=== PATIENT | female | born 2000 | race Caucasian/White ===

== ENCOUNTER 2020-07-14 10:22 | Inpatient (IN) ==
[2020-07-14] MEDS ORDERED: Metoclopramide 10 MG/2 ML VIAL IVP PRN (10:39)
[2020-07-14] MEDS ORDERED: Naloxone 0.4 MG/ML INJ IVP PRN (10:39)
[2020-07-14] MEDS ORDERED: Famotidine 20 MG/2 ML VIAL IVP PRN (10:39)
[2020-07-14 11:29] LABS: Basophils % 0.3 %; Eosinophils % 0.4 %; Hematocrit 37.3 % (35.3-44.9); Hemoglobin 12.8 g/dL (11.5-15.4); Immature Granulocytes % 0.9 % (0-4); Lymphocytes # 1.5 K/mcL (0.6-4.6); Lymphocytes % 13.6 %; Mean Corpuscular HGB Conc 34.3 g/dL (31.6-35.5); Mean Corpuscular Hemoglobin 31.6 pg (28.0-33.3); Mean Corpuscular Volume 92.1 fL (83.0-100.0); Mean Platelet Volume 10.9 fL (9.4-12.4); Monocytes # 0.6 K/mcL (0.0-1.3); Monocytes % 5.2 %; Platelet Count 188 K/mcL (140-400); Red Blood Count 4.05 M/mcL (3.82-4.97); Red Cell Distribution Width 12.8 % (11.5-14.5); Segmented Neutrophils % 79.6 %; White Blood Count 11.3 K/mcL (4.3-11.1)
[2020-07-14 11:33] LABS: Amphetamine Screen,Urine Negative ng/mL (Cutoff=1000); Barbiturate Screen,Urine Negative ng/mL (Cutoff=200); Benzodiazepines Screen,Urine Negative ng/mL (Cutoff=200); Cannabinoid Screen,Urine Negative ng/mL (Cutoff = 50); Cocaine Screen,Urine Negative ng/mL (Cutoff= 300); Opiate Screen,Urine Negative ng/mL (Cutoff=300); Phencyclidine Screen,Urine Negative ng/mL (Cutoff=25); Protein/Creatinine Ratio,Urine 0.3 mg/mg (0.00-0.20)
[2020-07-14 11:43] LABS: Alanine Aminotransferase 21 Units/L (7-52); Aspartate Amino Transferase 25 Units/L (13-39); BUN/Creatinine Ratio 14 (6-26); Blood Urea Nitrogen 7 mg/dL (6-20); Lactate Dehydrogenase 182 Units/L (140-271); Uric Acid 5.4 mg/dL (2.3-7.6); eGFR For African Americans > 60 (> 60); eGFR For Non-African Americans > 60 (> 60)
[2020-07-14] MEDS ORDERED: miSOPROStoL 25 MCG TABLET VG PRN (12:09)
[2020-07-14] MEDS ORDERED: Ropivacaine/PF 0.2% 20 ML VIAL EP ONE (13:50)
[2020-07-14] MEDS ORDERED: EPHEDrine 50 MG/ML VIAL IVP PRN (13:50)
[2020-07-14] MEDS ORDERED: *HR* FentaNYL (PF) 100 MCG/2 ML VIAL EP ONE (13:50)
[2020-07-14] MEDS ORDERED: Ringers Solution, Lactated 1,000 ML ONE (14:42)
[2020-07-14] MEDS ORDERED: Ropivacaine/PF 0.2% 20 ML VIAL ONE (15:12)
[2020-07-14] MEDS ORDERED: *HR* FentaNYL (PF) 100 MCG/2 ML VIAL ONE ×2 (15:12→23:08)
[2020-07-15] MEDS ORDERED: Oxytocin 20 units/ LR 1000 mL 20 UNIT/1,000 ML BAG IVC SCH (01:45)
[2020-07-15] MEDS: Ringers Solution, Lactated 1,000 ML IVC SCH (02:15)
[2020-07-15] MEDS ORDERED: Acetaminophen 325 MG TABLET PO ONE ×2 (02:17→19:19)
[2020-07-15] MEDS: Epidural Premix (fent/bupiv) 110 ML EP SCH (10:32)
[2020-07-15] MEDS ORDERED: CeFAZolin 2,000 MG/50 ML BAG IVPB SCH (20:00)
[2020-07-15] MEDS ORDERED: Lidocaine/EPI 1:200k 2% PF 20 ML VIAL ONE (22:02)
[2020-07-15] MEDS ORDERED: Acetaminophen IV 1,000 MG/100 ML BAG IVPB ONE (22:02)
[2020-07-15] MEDS ORDERED: Ondansetron 4 MG/2 ML VIAL ONE (22:23)
[2020-07-15] MEDS ORDERED: *HR* Morphine Sulfate/PF 10 MG/10 ML AMPUL ONE (22:31)
[2020-07-15] MEDS ORDERED: Ondansetron 4 MG/2 ML VIAL IVP PRN (22:43)
[2020-07-15] MEDS ORDERED: *HR* OxyCODONE Immed Rel 5 MG TABLET PO PRN (22:43)
[2020-07-15] MEDS ORDERED: *HR* HYDROmorphone PF 0.5 MG/0.5 ML SYRINGE IVP PRN (22:43)
[2020-07-15 22:50] LABS: Cord Arterial Blood HCO3 21 mEq/L; Cord Arterial Blood Oxygen Sat 28 %
[2020-07-15 22:56] LABS: Cord Venous Blood HCO3 23 mEq/L; Cord Venous Blood PCO2 41 mmHg (27-42); Cord Venous Blood PO2 22 mmHg (15-45)
[2020-07-16] MEDS ORDERED: Acetaminophen 325 MG TABLET PO PRN (01:54)
[2020-07-16] MEDS ORDERED: Metoclopramide 10 MG/2 ML VIAL IVP PRN (01:54)
[2020-07-16] MEDS ORDERED: Ondansetron 4 MG/2 ML VIAL IVP PRN (01:54)
[2020-07-16] MEDS ORDERED: Azithromycin 500 MG in 0.9 % Sodium Chloride 250 ML IVPB STA (01:54)
[2020-07-16] MEDS ORDERED: Sennosides 8.6 MG TABLET PO PRN (01:54)
[2020-07-16] MEDS ORDERED: Naloxone 0.4 MG/ML INJ IVP PRN (01:54)
[2020-07-16] MEDS: Oxytocin 20 units/ LR 1000 mL 20 UNIT/1,000 ML BAG IVC SCH ×4 (02:49→14:15)
[2020-07-16 05:11] LABS: Basophils % 0.2 %; Eosinophils % 0.2 %; Hematocrit 35.1 % (35.3-44.9); Hemoglobin 12.2 g/dL (11.5-15.4); Immature Granulocytes % 0.5 % (0-4); Lymphocytes # 1.8 K/mcL (0.6-4.6); Lymphocytes % 9.6 %; Mean Corpuscular HGB Conc 34.8 g/dL (31.6-35.5); Mean Corpuscular Hemoglobin 31.6 pg (28.0-33.3); Mean Corpuscular Volume 90.9 fL (83.0-100.0); Mean Platelet Volume 11.2 fL (9.4-12.4); Monocytes # 0.9 K/mcL (0.0-1.3); Neutrophils # 15.9 K/mcL (1.6-8.9); Platelet Count 165 K/mcL (140-400); Red Blood Count 3.86 M/mcL (3.82-4.97); Red Cell Distribution Width 12.5 % (11.5-14.5); Segmented Neutrophils % 84.5 %
[2020-07-16 05:12] LABS: White Blood Count 18.8 K/mcL (4.3-11.1)
[2020-07-16] MEDS: Ibuprofen 600 MG TABLET PO PRN ×3 (05:56→23:32)
[2020-07-16] MEDS: Epidural Premix (fent/bupiv) 110 ML EP SCH (07:36)
[2020-07-16] MEDS: Ringers Solution, Lactated 1,000 ML IVC SCH ×2 (07:36→07:37)
[2020-07-16] MEDS: *HR* OxyCODONE/APAP 5/325 TABLET PO PRN ×2 (08:10→14:14)
[2020-07-16] MEDS: Prenatal Vit/FA 1 EACH TABLET PO SCH (08:11)
[2020-07-16] MEDS: Simethicone 80 MG TAB.CHEW PO PRN (17:38)
[2020-07-16] MEDS: *HR* OxyCODONE Immed Rel 5 MG TABLET PO PRN (20:12)
[2020-07-17] MEDS: Ibuprofen 600 MG TABLET PO PRN ×3 (06:04→23:50)
[2020-07-17] MEDS: *HR* OxyCODONE Immed Rel 5 MG TABLET PO PRN ×3 (06:04→15:04)
[2020-07-17] MEDS: Prenatal Vit/FA 1 EACH TABLET PO SCH (09:21)
[2020-07-17] MEDS: Simethicone 80 MG TAB.CHEW PO PRN (15:04)
[2020-07-17] MEDS: *HR* OxyCODONE/APAP 5/325 TABLET PO PRN (19:58)
[2020-07-18] MEDS: *HR* OxyCODONE/APAP 5/325 TABLET PO PRN ×2 (01:04→05:07)
[2020-07-18] MEDS: Prenatal Vit/FA 1 EACH TABLET PO SCH (08:16)
[2020-07-18 11:28] VITALS: BP 138/86
== END 2020-07-18 12:50 | disposition home or self-care (01) | DRG 540 ==
LOC: 1NENULAB 10:22 → 1NENUOBS 07-16 01:53
PROVIDERS: ADMIT Obstetrics & Gynecology; ATTEND Obstetrics & Gynecology

== ENCOUNTER 2021-02-14 19:57 | Observation (INO) ==
[2021-02-14] MEDS ORDERED: *HR* LORazepam 2 MG/ML VIAL IM ONE (20:39)
[2021-02-14] MEDS ORDERED: Haloperidol Lactate 5 MG/ML VIAL IM ONE (20:41)
[2021-02-14] MEDS ORDERED: Tdap (Boostrix) Vaccine 0.5 ML SYRINGE IM ONE (20:42)
[2021-02-14 21:03] LABS: Basophils % 0.2 %; Eosinophils % 0.2 %; Immature Granulocytes % 0.4 % (0-4); Lymphocytes # 1.8 K/mcL (0.6-4.6); Lymphocytes % 10.3 %; Mean Corpuscular HGB Conc 34.1 g/dL (31.6-35.5); Mean Corpuscular Hemoglobin 31.3 pg (28.0-33.3); Mean Corpuscular Volume 91.9 fL (83.0-100.0); Mean Platelet Volume 10.3 fL (9.4-12.4); Monocytes # 0.9 K/mcL (0.0-1.3); Monocytes % 5.2 %; Neutrophils # 14.5 K/mcL (1.6-8.9); Platelet Count 283 K/mcL (140-400); Red Blood Count 4.79 M/mcL (3.82-4.97); Red Cell Distribution Width 12.5 % (11.5-14.5); Segmented Neutrophils % 83.7 %; White Blood Count 17.3 K/mcL (4.3-11.1)
[2021-02-14 21:17] LABS: Acetaminophen < 10 mcg/mL (10-20); BUN/Creatinine Ratio 15 (6-26); Blood Urea Nitrogen 16 mg/dL (6-20); Calcium 9.6 mg/dL (8.6-10.3); Carbon Dioxide 17 mEq/L (23-29); Chloride 112 mEq/L (98-107); Chol/HDL Ratio 5.2 (0-4.9); Cholesterol 208 mg/dL (< 200); Ethanol 209 mg/dL (Less than 10); Glucose 98 mg/dL (70-105); HDL Cholesterol 40 mg/dL (40-59); LDL Cholesterol,Calculated 88 mg/dL (< 100); Osmolality,Calculated 299 (280-300); Potassium 3.5 mEq/L (3.5-5.1); Salicylate < 2.5 mg/dL (15.0-30.0); Sodium 144 mEq/L (136-145); Triglycerides 400 mg/dL (< 150); eGFR For African Americans > 60 (> 60); eGFR For Non-African Americans > 60 (> 60)
[2021-02-14] MEDS ORDERED: Isovue-370 500 ML BOTTLE IVP ONE (21:24)
[2021-02-14] MEDS ORDERED: 0.9 % Sodium Chloride 1,000 ML IVC ONE (21:24)
[2021-02-14 21:29] LABS: Thyroid Stimulating Hormone 0.741 mcIU/mL (0.340-5.600)
[2021-02-14 22:17] LABS: Amphetamine Screen,Urine Negative ng/mL (Cutoff=1000); Barbiturate Screen,Urine Negative ng/mL (Cutoff=200); Benzodiazepines Screen,Urine Negative ng/mL (Cutoff=200); Bilirubin,Urine Negative (Negative); Blood,Urine Small (Negative); Cannabinoid Screen,Urine Negative ng/mL (Cutoff = 50); Clarity,Urine Clear (Clear); Cocaine Screen,Urine Negative ng/mL (Cutoff= 300); Color,Urine Light-Yellow (Yellow); Glucose,Urine (UA) Normal (Normal); Ketones,Urine Negative (Negative); Leukocyte Esterase,Urine Negative (Negative); Mucus,Urine Few per lpf (None-Few); Nitrite,Urine Negative (Negative); Opiate Screen,Urine Negative ng/mL (Cutoff=300); Phencyclidine Screen,Urine Negative ng/mL (Cutoff=25); Protein,Urine 30 mg/dL (Neg-Trace); RBC,Urine 0-3 per hpf (0-3); Squamous Epithelial Cell,Urine Few per hpf (None-Few); Urobilinogen,Urine Normal (Normal)
[2021-02-14 22:25] LABS: Estimated Average Glucose 88 mg/dl; Hemoglobin A1C 4.7 %
[2021-02-15] MEDS ORDERED: Acetaminophen 325 MG TABLET PO PRN (01:11)
[2021-02-15] MEDS ORDERED: Ondansetron 4 MG/2 ML VIAL IVP PRN (01:11)
[2021-02-15] MEDS ORDERED: Naloxone 0.4 MG/ML INJ IVP PRN (01:11)
[2021-02-15] MEDS ORDERED: Ipratropium/Albuterol Neb 3 ML IH PRN (01:15)
[2021-02-15] MEDS ORDERED: *HR* LORazepam 2 MG/ML VIAL IVP PRN ×3 (01:16→09:03)
[2021-02-15] MEDS: 0.9 % Sodium Chloride 1,000 ML IVC SCH ×3 (03:04→16:52)
[2021-02-15 06:33] LABS: Basophils % 0.3 %; Eosinophils # 0.1 K/mcL (0.0-0.6); Eosinophils % 0.5 %; Hematocrit 40.4 % (35.3-44.9); Hemoglobin 13.6 g/dL (11.5-15.4); Immature Granulocytes % 0.2 % (0-4); Lymphocytes # 1.9 K/mcL (0.6-4.6); Lymphocytes % 19.9 %; Mean Corpuscular HGB Conc 33.7 g/dL (31.6-35.5); Mean Corpuscular Hemoglobin 31.1 pg (28.0-33.3); Mean Corpuscular Volume 92.2 fL (83.0-100.0); Mean Platelet Volume 10.4 fL (9.4-12.4); Monocytes # 0.8 K/mcL (0.0-1.3); Monocytes % 8.2 %; Neutrophils # 6.9 K/mcL (1.6-8.9); Platelet Count 241 K/mcL (140-400); Red Blood Count 4.38 M/mcL (3.82-4.97); Red Cell Distribution Width 12.6 % (11.5-14.5); Segmented Neutrophils % 70.9 %; White Blood Count 9.7 K/mcL (4.3-11.1)
[2021-02-15 06:47] LABS: Alanine Aminotransferase 16 Units/L (7-52); Albumin 4.7 g/dL (3.5-5.7); Albumin/Globulin Ratio 1.8 (1.1-2.2); Alkaline Phosphatase 82 Units/L (34-104); Aspartate Amino Transferase 31 Units/L (13-39); BUN/Creatinine Ratio 15 (6-26); Bilirubin,Total 0.4 mg/dL (0.3-1.0); Blood Urea Nitrogen 11 mg/dL (6-20); Calcium 8.8 mg/dL (8.6-10.3); Carbon Dioxide 19 mEq/L (23-29); Chloride 110 mEq/L (98-107); Ethanol 32 mg/dL (Less than 10); Globulin 2.6 g/dL (2.4-3.5); Glucose 74 mg/dL (70-105); Magnesium 1.8 mg/dL (1.6-2.6); Osmolality,Calculated 290 (280-300); Potassium 3.9 mEq/L (3.5-5.1); Sodium 141 mEq/L (136-145); Total Protein 7.3 g/dL (6.4-8.9); eGFR For African Americans > 60 (> 60); eGFR For Non-African Americans > 60 (> 60)
[2021-02-15 16:35] VITALS: BP 143/76; PULSE 69; TEMP 98.2; O2SAT 98
[2021-02-15] MEDS ORDERED: Thiamine (B-1) 100 MG, Folic Acid 1 MG, MVI, adult with vitamin K 10 ML in 0.9 % Sodi... IVPB SCH (18:00)
== END 2021-02-15 17:51 | disposition home or self-care (01) ==
LOC: 3ANU 19:57 → EMEROOARM 19:57 → SUATTDRO 02-15 01:59 → 3ANU 02-15 02:39
PROVIDERS: ADMIT Student in an Organized Health Care Education/Training Program; ATTEND Hospitalist